=== PATIENT | male | born 1960 | race African-American/Black ===

== ENCOUNTER 2023-11-20 12:40 | Inpatient (IN) | payer OTHER ==
[2023-11-20 13:10] VITALS: BMI 33.8
[2023-11-20] MEDS ORDERED: IBUPROFEN 400 MG TABLET (FP) PO PRN (14:50)
[2023-11-20] MEDS ORDERED: DICYCLOMINE HCL 10 MG CAPSULE PO PRN (14:50)
[2023-11-20] MEDS ORDERED: BENZOCAINE/MENTHOL (CHLORASEPTIC ) LOZENGE MM PRN (14:50)
[2023-11-20] MEDS ORDERED: LOPERAMIDE HCL 2 MG CAPSULE PO PRN (14:50)
[2023-11-20] MEDS ORDERED: BENZONATATE 200 MG CAPSULE PO PRN (14:50)
[2023-11-20] MEDS ORDERED: NALOXONE (NARCAN) HCL 4 MG/0.1 ML SPRAY NS PRN (14:50)
[2023-11-20] MEDS ORDERED: BISMUTH SUBSALICYLATE 524 MG/30 ML PO PRN (14:50)
[2023-11-20] MEDS ORDERED: IBUPROFEN 600 MG TABLET (FP) PO PRN (14:50)
[2023-11-20] MEDS ORDERED: ONDANSETRON *ODT* 4 MG TABLET SL PRN (14:50)
[2023-11-20] MEDS ORDERED: POLYETHYLENE GLYCOL (HEALTHYLAX) 3350 17 GM PACKET PO PRN (14:50)
[2023-11-20] MEDS ORDERED: MAGNESIUM HYDROX 2400MG/30ML ORAL SUSPENSION 30 ML CUP PO PRN (14:50)
[2023-11-20] MEDS ORDERED: NALOXONE HCL 0.4 MG/ML VIAL IM PRN (14:50)
[2023-11-20] MEDS ORDERED: MAG HYDROX/AL HYDROX/SIMETH 30 ML UNIT-DOSE CUP PO PRN (14:50)
[2023-11-20] MEDS ORDERED: PRENATAL VITAMINS W/ FOLIC ACID TABLET (FP) PO ONE (17:41)
[2023-11-20] MEDS ORDERED: methaDONE HCL 10 MG TABLET (FOR DETOX USE ONLY) ONE (17:41)
[2023-11-20] MEDS: methaDONE HCL 10 MG TABLET (FOR DETOX USE ONLY) PO ONE (17:45)
[2023-11-20] MEDS: PRENATAL VITAMINS W/ FOLIC ACID TABLET (FP) PO SCH (17:46)
[2023-11-20] MEDS: guaiFENesin 600 MG TABLET.ER (FP) PO PRN (18:27)
[2023-11-20] MEDS: cloNIDine HCL 0.1 MG TABLET PO SCH (18:27)
[2023-11-20] MEDS: hydrOXYzine PAMOATE 25 MG CAPSULE (FP) PO PRN (18:27)
[2023-11-20] MEDS: P-EPHED 60MG/TRIPROLIDI 2.5MG TABLET PO PRN (18:34)
[2023-11-20] MEDS: THIAMINE 100 MG TABLET PO SCH (22:03)
[2023-11-20] MEDS: ATORVASTATIN CA 40 MG TABLET (FP) PO SCH (22:03)
[2023-11-20] MEDS: MELATONIN 5 MG TABLETS PO SCH (22:03)
[2023-11-20] MEDS: METHOCARBAMOL 500 MG TABLET PO PRN (22:03)
[2023-11-20] MEDS: BUPRENORPHINE/NALOXONE 0.5 MG/0.125 MG FILM SL ONE (22:43)
[2023-11-21] MEDS ORDERED: DOXAZOSIN MESYLATE 8 MG TABLET PO SCH (10:00)
[2023-11-21] MEDS: amLODIPine BESYLATE 10 MG TABLET (FP) PO SCH (10:42)
[2023-11-21] MEDS: LOSARTAN POTASSIUM 50 MG TABLET PO SCH (10:42)
[2023-11-21] MEDS: BUPRENORPHINE/NALOXONE 0.5 MG/0.125 MG FILM SL SCH ×2 (10:46→23:14)
[2023-11-21] MEDS ORDERED: DOXAZOSIN MESYLATE 4 MG TABLET PO SCH (10:53)
[2023-11-21] MEDS ORDERED: PATIENT'S OWN MEDICATION (NON-FORMULARY) (Losartan Potassium [Cozaar] 100 MG Tablet) PO SCH (11:15)
[2023-11-21] MEDS ORDERED: amLODIPine BESYLATE 10 MG TABLET (FP) PO SCH (12:30)
[2023-11-21] MEDS: FLUTICASONE PROP 0.05% 16 GM NASAL SPRAY NS SCH (12:30)
[2023-11-21] MEDS: HYDROCHLOROTHIAZIDE 25 MG TABLET (FP) PO SCH (12:30)
[2023-11-21 14:33] LABS: POTASSIUM 4.3 mmol/L (3.5-5.1)
[2023-11-21 14:36] LABS: HEMATOCRIT 34.7 % (35.4-49); HEMOGLOBIN 11.3 GM/dL (11.7-16.9); MCH 27.6 pg (25.7-33.7); MCHC 32.7 g/dl (32.0-35.9); MEAN CELL VOLUME 84.5 fl (80-96); MEAN PLT VOLUME 8.6 fl (7.5-11.1); PLATELET COUNT 255 10^3/uL (134-434); RDW 13.4 % (11.9-15.9)
[2023-11-21 14:52] LABS: ALBUMIN 3.8 g/dl (3.4-5.0); BLOOD UREA NITROGEN 15.2 mg/dL (7-18); CALCIUM 9.5 mg/dL (8.5-10.1)
[2023-11-21 14:54] LABS: BILIRUBIN,TOTAL 0.4 mg/dL (0.2-1); TOT PROT 7.2 g/dl (6.4-8.2)
[2023-11-21 14:55] LABS: CREATININE 1.1 mg/dL (0.55-1.3)
[2023-11-21] MEDS: ATORVASTATIN CA 40 MG TABLET (FP) PO SCH (23:12)
[2023-11-21] MEDS: MELATONIN 5 MG TABLETS PO SCH (23:15)
[2023-11-21] MEDS: DOXAZOSIN MESYLATE 8 MG TABLET PO SCH (23:17)
[2023-11-22] MEDS: methaDONE HCL 10 MG TABLET (FOR DETOX USE ONLY) PO ONE (10:31)
[2023-11-22] MEDS: BUPRENORPHINE/NALOXONE 2 MG/0.5 MG FILM PACKET SL SCH (10:34)
[2023-11-22] MEDS: amLODIPine BESYLATE 10 MG TABLET (FP) PO SCH (10:34)
[2023-11-22] MEDS ORDERED: DOXYCYCLINE HYCLATE 100 MG CAPSULE PO SCH (11:00)
[2023-11-22] MEDS: DOXYCYCLINE HYCLATE 100 MG TABLET PO SCH (11:18)
[2023-11-22 18:04] VITALS: RESP 18
[2023-11-23] MEDS: ACETAMINOPHEN 325 MG TABLET (FP) PO PRN (06:04)
[2023-11-23] MEDS: BUPRENORPHINE/NALOXONE 4 MG/1 MG FILM PACKET SL SCH (10:04)
[2023-11-23 13:23] VITALS: BP 150/80; PULSE 91; TEMP 98
[2023-11-24] MEDS ORDERED: methaDONE HCL 10 MG TABLET (FOR DETOX USE ONLY) PO ONE (10:00)
[2023-11-24] MEDS ORDERED: BUPRENORPHINE/NALOXONE 8 MG/2 MG FILM PACKET SL SCH (10:00)
[2023-11-25] MEDS ORDERED: BUPRENORPHINE/NALOXONE 8 MG/2 MG FILM PACKET SL SCH (10:00)
== END 2023-11-23 14:47 | disposition home or self-care (01) | DRG 773 ==
LOC: YASAS 12:40 → Y6N 17:20
PROVIDERS: ADMIT Allergy & Immunology; ATTEND Surgery
PROC: HZ2ZZZZ Detoxification Services for Substance Abuse Treatment (ICD-10-PCS; principal; 2023-11-20)
DX: F11.23 Opioid dependence with withdrawal (principal); F10.230 Alcohol dependence with withdrawal, uncomplicated; F17.210 Nicotine dependence, cigarettes, uncomplicated; F19.282 Other psychoactive substance dependence with psychoactive substance-induced sleep disorder; E78.5 Hyperlipidemia, unspecified; I10 Essential (primary) hypertension; J32.0 Chronic maxillary sinusitis; N40.0 Benign prostatic hyperplasia without lower urinary tract symptoms
CPT/HCPCS: 36415; 80053; 80305; 80307; 85027; 86780; 87811; 93005; 93010